=== PATIENT | male | born 1965 | race Two or more races ===

== ENCOUNTER 2024-10-25 10:57 | Emergency (ER) | payer OTHER ==
[~2024-10-25] VITALS: Ht 172.7 cm; Wt 88.5 kg
[2024-10-25] MEDS ORDERED: COZAAR25 MG (11:43)
[2024-10-25] MEDS ORDERED: TOPROL XL25 M1 (11:43)
[2024-10-25] MEDS ORDERED: 0.9 % SODIUM CHLORIDE 1,000 ML IV STA (12:05)
[2024-10-25 13:29] LABS: URINE APPEARANCE Clear; URINE BILIRRUBIN Negative (NEGATIVE); URINE BLOOD Negative; URINE COLOR Yellow; URINE GLUCOSE Negative (NEGATIVE); URINE KETONE Negative (NEGATIVE); URINE LEUKOCYTE Negative; URINE NITRATE Negative; URINE PROTEIN Negative (NEGATIVE); URINE UROBILINOGEN 0.2 E.U./dl
[2024-10-25 13:33] LABS: URINE BACTERIA 8.5 uL (0.0-1933); URINE RBC 2.5 uL (0.0-20.8); URINE WBC 3.9 uL (0.0-23.2)
[2024-10-25 13:35] LABS: HEMATOCRIT 43.5 % (39.0-48.0); HEMOGLOBIN 15.6 g/dL (13-16.00); MEAN CELL VOLUME 89.7 fL (80.0-100.00); MEAN CORPUSCULAR HEMOGLOBIN 32.2 pg (27.00-32.0); MEAN CORPUSCULAR HGB CONC 35.9 g/dl (32.0-36.0); PLATELET COUNT 252 K/uL (150-450); RED BLOOD COUNT 4.85 M/uL (4.00-6.00); RED CELL DISTRIBUTION WIDTH 12.9 % (11.5-14.5)
[2024-10-25 13:43] LABS: URINE EPITHELIAL CELLS 0.9 uL (0.0-38.8)
[2024-10-25 14:15] LABS: CALCIUM 9.3 mg/dL (8.5-10.1); CREATININE SERUM 0.88 mg/dL (0.70-1.30); GFR 88.64; POTASSIUM 4.96 mEq/L (3.5-5.1)
== END 2024-10-25 16:16 | disposition home or self-care (01) ==
LOC: ER 11:00
PROVIDERS: Emergency Medicine
DX: R55 Syncope and collapse (principal); I10 Essential (primary) hypertension; Z91.018 Allergy to other foods